=== PATIENT | female | born 1985 | race African-American/Black ===

== ENCOUNTER 2020-01-28 23:20 | Emergency (ER) | payer OTHER ==
[~2020-01-28] VITALS: Ht 172.7 cm; Wt 86.2 kg
[2020-01-28 23:32] VITALS: Ht 172.7 cm; Wt 86.2 kg
[2020-01-29 01:30] LABS: BASOPHIL % 0.6 % (0-2); PLATELET COUNT 259 x10^3mcL (130-400)
[2020-01-29 04:17] VITALS: BP 105/66
== END 2020-01-29 04:17 | disposition home or self-care (01) ==
LOC: ED 23:20
PROVIDERS: Emergency Medicine
DX: N83.201 Unspecified ovarian cyst, right side (principal)
CPT/HCPCS: Q0092